=== PATIENT | female | born 1955 | race Caucasian/White ===

== ENCOUNTER → 2018-12-27 | Outpatient (CLI) | payer OTHER ==
[~2018-12-27] MED LIST: ALBU90OI INH; BUDE.5 NEB; BUDE6HFA INH; COMBIVENT RESPIM4 GM; DIAZ2 PO; HYDACE5 PO; METCAR500 PO; NAPR500 PO; Percocet 5-3251 EACH PO; RXOXYACE PO
[2018-12-29 14:07] LABS: HPV 16 Negative (Negative); HPV 18 Negative (Negative); HPV OTHER HR TYPES Negative (Negative)
== END | disposition home or self-care (01) ==
LOC: LAB SHORT 13:59 → LAB 13:59
PROVIDERS: Physician Assistant
DX: Z12.4 Encounter for screening for malignant neoplasm of cervix (principal)
CPT/HCPCS: 87624; G0123

== ENCOUNTER → 2019-05-02 | Outpatient (CLI) | payer OTHER | END | disposition home or self-care (01) | LOC: LAB UCHC 14:20 → LAB SHORT 14:20 → LAB FUT 05-01 17:05 | DX: R19.5 Other fecal abnormalities (principal) | CPT/HCPCS: 87177; 87209 ==

== ENCOUNTER → 2021-02-19 | Outpatient (CLI) | payer OTHER | END | disposition home or self-care (01) | LOC: LAB SHORT 19:14 → LAB 19:14 | DX: R39.15 Urgency of urination (principal) | CPT/HCPCS: 87086 ==